=== PATIENT | female | born 1990 | race Caucasian/White ===

== ENCOUNTER 2025-05-01 15:30 | Observation (INO) ==
[2025-05-01] MEDS ORDERED: OXYTOCIN 30 UNITS/NSS 30 UNITS/500 ML BAG IV PRN ×2 (15:53)
[2025-05-01] MEDS ORDERED: LIDOCAINE 1% LOCAL 20 ML VIAL INFIL PRN (15:53)
[2025-05-01] MEDS: BETAMETH SOD PHOS/ACETATE IA 6 MG/ML IM STA (16:45)
[2025-05-01 16:47] LABS: Hematocrit (blood only) 36.2 % (37.0-47.0); Hemoglobin 12.4 g/dl (12.0-16.0); Mean Corpuscular Hemoglobin 29.7 pg (25.0-34.0); Mean Corpuscular Volume 86.6 fL (80.0-100.0); Platelet Count 233 K/uL (130-400); RDW Standard Deviation 39.4 fL (36.4-46.3); Red Blood Count 4.18 M/uL (4.20-5.40); White Blood Count 13.40 K/ul (4.8-10.8)
[2025-05-01] MEDS: LACTATED RINGER'S 1,000 ML IV PRN (16:54)
--- NOTE | 2025-05-01 16:59 | History & Physical Report ---
Date of Service May 01, 2025 Assessment & Plan (1) IUGR (intrauterine growth restriction) affecting care of mother: Plan: Given 34w6d, IUGR, absent umbilical artery flow, recommend induction of labor. I discussed case with on-call special services supervisor, who conferenced with tomorrow's special services supervisor as well. They feel that there is a high risk of need for transfer from our facility to NICU after , given IUGR, 34 6/7, and 1845g weight on 04/24/25 US. Therefore, it would likely be in the best interest of mom/baby to deliver at a facility able to care for baby after , to prevent separation of baby/mom after delivery. I reviewed with patient, and she is agreeable to transfer. I spoke with Dr Frias (OB) and Dr Lopez (M), and patient is approved for transfer to [facility]. She rec'd celestone 16:45 and ancef 16:55. (2) Abnormal test: Admission and Anticipated Discharge Date Admission Date: May 01, 2025 History of Present Illness Chief Complaint: IUGR + absent UA doppler Primary Care Provider: NO PCP 34yo @ 34 6/7, presented to office today for routine testing for IUGR. Finding of absent flow on umbilical artery doppler, reactive NST. She was directed to L&D for induction of labor. IUGR diagnosed 04/24/25 after small fundal height noted in office, EFW 5%, AC <2%, 1845g on ultrasound 04/24/25. Allergies Allergy/AdvReac Type Severity Reaction Status Date / Time amoxicillin Allergy Rash Verified 05/01/25 14:15 Home Medications Medication Instructions Recorded Confirmed Type ferrous sulfate 325 mg (65 mg 325 mg PO DAILY 05/01/25 05/01/25 History iron) tablet (iron) vits no.124-ferrous fum 1 tab PO DAILY 05/01/25 05/01/25 History 27 mg iron-folic acid 800 mcg tablet ( Vitamin) Patient History Social History (Updated 05/01/25 @ 15:45 by Romy Rosenthal RN) Smoking Status: Never smoker Do You Dip or Chew Tobacco: No; Hx Alcohol Use: No Hx Substance Use: No Preferred Language: [place] Communication Ability: Effective Visual Impairment: No Limitations Hearing Ability: Normal Registrar Nurses' Registry Required: No Beliefs That Will Affect Care: None marital status: marital status details: Gee (36) [phone] Current Living Situation: Spouse Current Living Situation Comment: Lives with , Gee and dog. current occupational status: employed current occupation: Nurs[employer] Other Information That Helps Us Care for You: No Feels Safe at Home: Yes Safety Concerns: Feels Safe At This Time Diet: regular Dental Care, Regularly: Yes Gender Identity: Female Assistive Devices: None Review of Systems All systems reviewed & are unremarkable except as noted in HPI & below Physical Exam Physical Exam: FHT Category 1, reactive NST [place] none Constitutional: WD/WN, vitals as above Respiratory: normal respiratory effort, lungs clear to auscultation no respiratory distress Cardiovascular: Rate/Rhythm: regular rate and regular rhythm Gastrointestinal (Abdomen): Inspection/Auscultation: abdomen normal to inspection Percussion/Palpation: abdomen soft; abdomen nontender Gravid. No s/s chorio or abruption. Skin: no rashes, warm and dry Psychiatric: A+Ox3, euthymic affect Results & Data Vital Signs (Past 12 Hours) Vital Signs Temp Pulse Resp BP 05/01/25 15:55 36.9 C 20 05/01/25 15:40 82 130/78 Coding Level of Care Code 03456 IN/OBS CONSULT LVL 3,45M Diagnoses IUGR (intrauterine growth restriction) affecting care of mother O36.5990 Abnormal test O28.9
[2025-05-01 18:22] VITALS: BP 125/73; PULSE 89
[2025-05-01 18:24] VITALS: RESP 18; TEMP 98.6
[2025-05-02] MEDS ORDERED: BETAMETH SOD PHOS/ACETATE IA 6 MG/ML IM PRN (16:30)
--- NOTE | 2025-05-06 23:39 | Discharge Summary ---
Date of Service May 06, 2025 Admission HPI Per Admitting Provider 34yo @ 34 6/7, presented to office today for routine testing for IUGR. Finding of absent flow on umbilical artery doppler, reactive NST. She was directed to L&D for induction of labor. IUGR diagnosed 04/24/25 after small fundal height noted in office, EFW 5%, AC <2%, 1845g on ultrasound 04/24/25. Admission Exam (Per Admitting) Constitutional WD/WN, vitals as above Respiratory normal respiratory effort, lungs clear to auscultation no respiratory distress Cardiovascular Rate/Rhythm: regular rate and regular rhythm Gastrointestinal (Abdomen) Inspection/Auscultation: abdomen normal to inspection Percussion/Palpation: abdomen soft; abdomen nontender Skin no rashes, warm and dry Psychiatric A+Ox3, euthymic affect Hospital Course (1) IUGR (intrauterine growth restriction) affecting care of mother: Given 34w6d, IUGR, absent umbilical artery flow, recommend induction of labor. I discussed case with on-call director security management, who conferenced with tomorrow's director security management as well. They feel that there is a high risk of need for transfer from our facility to NICU after , given IUGR, 34 6/7, and 1845g weight on 04/24/25 US. Therefore, it would likely be in the best interest of mom/baby to deliver at a facility able to care for baby after , to prevent separation of baby/mom after delivery. I reviewed with patient, and she is agreeable to transfer. I spoke with Dr Frias (OB) and Dr Lopez ([facility]), and patient is approved for transfer to [facility]. She rec'd celestone 16:45 and ancef 16:55. (2) Abnormal test: Coding Level of Care Code None Diagnoses IUGR (intrauterine growth restriction) affecting care of mother O36.5990 Abnormal test O28.9
== END 2025-05-01 18:54 | disposition short-term general hospital (02) | DRG 833 ==
LOC: OPB 15:30 → 4S1 15:35 → INTOOBSV 15:53 → 4S1 15:53